=== PATIENT | male | born 2000 | race Caucasian/White ===

== ENCOUNTER 2021-03-20 17:01 | Emergency (ER) | payer MEDICAID ==
[~2021-03-20] VITALS: Ht 188 cm; Wt 77.1 kg
[2021-03-20 17:23] VITALS: BP 109/57
[2021-03-20] MEDS ORDERED: IBUP-2218 PO (21:53)
[2021-03-20] MEDS ORDERED: KETOROLAC 60 MG/2 ML VIAL IM ONE (21:55)
--- NOTE | 2021-03-20 22:02 | NUR ---
medicated patient per ermd orders. patient monitored. no adverse rx from medication
[2021-03-20 22:09] VITALS: BP 112/46
== END 2021-03-20 22:09 | disposition home or self-care (01) ==
LOC: MED 17:01
DX: M79.652 Pain in left thigh (principal); Z88.0 Allergy status to penicillin; Z79.899 Other long term (current) drug therapy
CPT/HCPCS: 73552; 73562; 96372; 99284; J1885

== ENCOUNTER 2021-07-12 10:15 | Emergency (ER) | payer MEDICAID ==
[~2021-07-12] VITALS: Ht 188 cm; Wt 81.6 kg
[~2021-07-12 10:15] MED LIST: IBUP-2218 PO
[2021-07-12 10:18] VITALS: BP 126/67
--- NOTE | 2021-07-12 10:24 | NUR ---
PT AMB TO BED 4.
--- NOTE | 2021-07-12 10:45 | NUR ---
21/M PRESENTS TO ED WITH C/O RIGHT FACIAL PAIN AND SWELLING. PATIENT DENIES RECENT INJURY OR TRAUMA, STATES CHEEK BEGAN SWELLING UP AT WORK YESTERDAY. DENIES TOOTH PAIN, STATES "I THINK I HAVE A CUT IN MY MOUTH." PATIENT DENIES SOB OR DIFFICULTY SWALLOWING, REPORTS 10/10 SHARP ACHING PAIN. STATES HE TOOK TYLENOL WITH NO RELIEF, DENIES FEVERS, CHILLS.
[2021-07-12] MEDS ORDERED: KETOROLAC 30 MG/ML VIAL IM ONE (11:05)
[2021-07-12] MEDS ORDERED: IBUP-2213 PO (11:12)
[2021-07-12] MEDS ORDERED: CLIN300C61 PO (11:12)
[2021-07-12] MEDS ORDERED: DEXAMETHASONE 10 MG/ML VIAL PO ONE (11:15)
[2021-07-12 11:44] VITALS: BP 126/67
--- NOTE | 2021-07-12 11:45 | NUR ---
Patient discharged with v/s stable. Written and verbal after care instructions given and explained. Patient alert, oriented and verbalized understanding of instructions. Ambulatory with steady gait. All questions addressed prior to discharge. ID band removed. Patient advised to follow up with PMD. Rx of CLINDAMYCIN AND IBUPROFEN given. Patient educated on indication of medication including possible reaction and side effects. Opportunity to ask questions provided and answered.
== END 2021-07-12 11:44 | disposition home or self-care (01) ==
LOC: MED 10:15
DX: K04.7 Periapical abscess without sinus (principal); Z79.1 Long term (current) use of non-steroidal anti-inflammatories (NSAID); Z79.2 Long term (current) use of antibiotics; Z88.0 Allergy status to penicillin
CPT/HCPCS: 96372; 99283; J1100; J1885

== ENCOUNTER 2021-10-10 08:52 | Emergency (ER) | payer MEDICAID ==
[~2021-10-10] VITALS: Ht 188 cm; Wt 81.6 kg
[~2021-10-10 08:52] MED LIST changes: +CLIN300C61 PO; +IBUP-2213 PO
[2021-10-10 09:07] VITALS: BP 131/113
--- NOTE | 2021-10-10 09:16 | NUR ---
Pt ambulated to bed 08.
--- NOTE | 2021-10-10 09:25 | NUR ---
Dr. Saldana evaluating patient at bedside.
--- NOTE | 2021-10-10 09:36 | NUR ---
Radiology at bedside.
--- NOTE | 2021-10-10 09:45 | NUR ---
Lab at bedside. Handed DINA and, Flu and Strep specimens to CPT Isabela.
[2021-10-10] MEDS: NACL 0.9% 1,000 ML IV ONE (09:56)
[2021-10-10] MEDS: ONDANSETRON 4 MG/2 ML VIAL IVP ONE (09:57)
[2021-10-10] MEDS: KETOROLAC 30 MG/ML VIAL IVP ONE (10:00)
[2021-10-10] MEDS: diphenhydrAMINE 50 MG/ML VIAL IVP ONE (10:01)
[2021-10-10 10:02] LABS: BASOPHILS % (AUTO) 0.3 % (0.0-2.0); HEMATOCRIT 42.9 % (36-52); HEMOGLOBIN 14.8 g/dL (12.0-18.0); LYMPHOCYTES % (AUTO) 9.1 % (20.5-51.1); MEAN CORPUSCULAR HEMOGLOBIN 31 pg (27-31); MEAN CORPUSCULAR HGB CONC 35 g/dL (33-37); MEAN CORPUSCULAR VOLUME 88.5 fL (80-94); MONOCYTES # (AUTO) 1.5 K/uL (0.8-1.0); MONOCYTES % (AUTO) 14.3 % (1.7-9.3); NEUTROPHILS # (AUTO) 8.2 K/uL (1.8-7.7); NEUTROPHILS % (AUTO) 76.3 % (42.2-75.2); PLATELET COUNT (AUTO) 312 K/uL (140-450); RED BLOOD CELL COUNT(AUTO) 4.85 MIL/uL (4.20-6.10); RED CELL DISTRIBUTION WIDTH 12.9 % (11.6-13.7); WHITE BLOOD COUNT (AUTO) 10.8 K/uL (4.8-10.8)
--- NOTE | 2021-10-10 10:23 | NUR ---
21 y/o male bib self with c/o subjective fever, chills, throat pain and generalized body pain x 2 days. Patient denies being around anyone who is sick. Patient denies cough or SOB. Patient has a 10/10 generalized body pain. Patient is also c/o diarrhea. Medical History: Denies ALLERGY: PENICILLIN
[2021-10-10 10:25] LABS: ALBUMIN 3.7 g/dL (3.4-5.0); ANION GAP 11.1 (8-16); CARBON DIOXIDE 28.4 mmol/L (21-32); CREATININE 1.2 mg/dL (0.6-1.3); POTASSIUM 3.5 mmol/L (3.5-5.1); TOTAL BILIRUBIN 0.7 mg/dL (0.0-1.0)
[2021-10-10] MEDS ORDERED: IBUP-2213 PO (11:07)
[2021-10-10] MEDS ORDERED: ROB PO (11:07)
--- NOTE | 2021-10-10 11:23 | NUR ---
Patient informed me to contact Shalini for ride back home.
[2021-10-10 11:45] VITALS: BP 104/57
--- NOTE | 2021-10-10 11:45 | NUR ---
Patient discharged with v/s stable. Written and verbal after care instructions given. Patient alert, oriented and verbalized understanding of instructions. Ambulatory with steady gait. All questions addressed prior to discharge. ID band removed. Patient advised to follow up with PMD. Rx of Ibuprofen and Robitussin given. Opportunity to ask questions provided and answered. WORK NOTE HANDED TO PATIENT.
--- NOTE | 2021-10-10 11:46 | NUR ---
Chart checked and completed. The patient's care was reviewed and supervised by Catie Marino RN.
[2021-10-11] MEDS ORDERED: CLIN300C73 PO (08:05)
[2021-10-11] MEDS ORDERED: NAPR-54 PO (08:05)
== END 2021-10-10 11:45 | disposition home or self-care (01) ==
LOC: MED 08:52
DX: B34.9 Viral infection, unspecified (principal); Z20.822 Contact with and (suspected) exposure to COVID-19; R50.9 Fever, unspecified; Z88.0 Allergy status to penicillin; Z79.899 Other long term (current) drug therapy
CPT/HCPCS: 36415; 71045; 80053; 82550; 82553; 83605; 83874; 83880; 84484; 85025; 87040; 87081; 87426; 87804; 93005; 96361; 96374; 96375; 99285; J1200; J1885; J2405; J7030; Q0092

== ENCOUNTER 2021-10-11 05:30 | Emergency (ER) | payer MEDICAID ==
[~2021-10-11] VITALS: Ht 188 cm; Wt 81.6 kg
[~2021-10-11 05:30] MED LIST changes: +ROB PO
[2021-10-11 05:39] VITALS: BP 116/98
--- NOTE | 2021-10-11 05:39 | NUR ---
TO BED AMBULATORY
--- NOTE | 2021-10-11 05:59 | NUR ---
21 Y/O MALE BIBS FROM HOME, C/O FEVER, WHOLE BODY PAIN, AND PAIN WHEN SWALLOWING SINCE YESTERDAY. PT STATES HE HAS TOOTH PAIN IN REAR LOWER TEETH WITH WHITE RESIDUE. PT CLAIMS HE HAS CHILLS AND DIARRHEA, DENIES N/V, COUGH, CP, OR SOB. A/OX4, UNLABORED BREATHING, AMBULATORY. NO PMH ALL: PCN
--- NOTE | 2021-10-11 06:06 | NUR ---
ER MD AT BEDSIDE EXAMINING PT
[2021-10-11] MEDS ORDERED: NACL 0.9% 1,000 ML IV ONE (06:15)
[2021-10-11] MEDS ORDERED: diphenhydrAMINE 50 MG/ML VIAL IVP ONE (06:20)
[2021-10-11] MEDS ORDERED: ONDANSETRON 4 MG/2 ML VIAL IVP ONE (06:20)
[2021-10-11] MEDS ORDERED: KETOROLAC 30 MG/ML VIAL IVP ONE (06:20)
[2021-10-11] MEDS ORDERED: CLINDAMYCIN 300 MG in DEXTROSE 5% 50 ML IV ONE (06:20)
--- NOTE | 2021-10-11 06:21 | NUR ---
XRAY AT BEDSIDE
--- NOTE | 2021-10-11 06:35 | NUR ---
PT TAKEN TO CT
--- NOTE | 2021-10-11 06:39 | NUR ---
CHEMISTRY PROFESSOR AT BEDSIDE
--- NOTE | 2021-10-11 06:40 | NUR ---
PT RETURNED FROM CT
[2021-10-11] MEDS ORDERED: CLINDAMYCIN 600 MG/4 ML VIAL ONE (06:43)
[2021-10-11 07:03] LABS: BASOPHILS % (AUTO) 0.1 % (0.0-2.0); EOSINOPHILS % (AUTO) 0.1 % (0.0-4.0); HEMATOCRIT 38.2 % (36-52); LYMPHOCYTES # (AUTO) 1.5 K/uL (2.0-11.5); LYMPHOCYTES % (AUTO) 13.1 % (20.5-51.1); MEAN CORPUSCULAR HEMOGLOBIN 30 pg (27-31); MEAN CORPUSCULAR HGB CONC 34 g/dL (33-37); MEAN CORPUSCULAR VOLUME 88.8 fL (80-94); MONOCYTES # (AUTO) 1.8 K/uL (0.8-1.0); MONOCYTES % (AUTO) 15.8 % (1.7-9.3); NEUTROPHILS # (AUTO) 7.9 K/uL (1.8-7.7); NEUTROPHILS % (AUTO) 70.9 % (42.2-75.2); PLATELET COUNT (AUTO) 275 K/uL (140-450); RED CELL DISTRIBUTION WIDTH 13.2 % (11.6-13.7); WHITE BLOOD COUNT (AUTO) 11.1 K/uL (4.8-10.8)
--- NOTE | 2021-10-11 07:10 | NUR ---
STREP SWABS COLLECTED AND WALKED TO LAB
--- NOTE | 2021-10-11 07:13 | NUR ---
Pt report given to CITLALI SERRATO. Transfer of care at this time.
--- NOTE | 2021-10-11 07:14 | NUR ---
Report received from Mich Frias. Transfer of care at this time.
--- NOTE | 2021-10-11 07:15 | NUR ---
Pt resting in bed with eyes closed, respirations even and unlabored. Responds to verbal and tactile stimuli. All needs met at this time.
--- NOTE | 2021-10-11 07:40 | NUR ---
pt ambulated to restroom with steady gait.
--- NOTE | 2021-10-11 07:50 | NUR ---
urine sample collected and walked to lab.
[2021-10-11 07:54] LABS: ALBUMIN 3.5 g/dL (3.4-5.0); ANION GAP 10.8 (8-16); ASPARTATE AMINOTRANSFERASE 27 U/L (15-37); CARBON DIOXIDE 28.5 mmol/L (21-32); CHLORIDE 104 mmol/L (98-107); CREATININE 1.1 mg/dL (0.6-1.3); GFR ARICAN-AMERICAN 107 mL/min (>90); GLUCOSE 109 mg/dL (74-106); POTASSIUM 3.3 mmol/L (3.5-5.1); SODIUM SERUM 140 mmol/L (136-145); TOTAL BILIRUBIN 0.4 mg/dL (0.0-1.0); UREA NITROGEN, BLOOD 9 mg/dL (7-18)
[2021-10-11] MEDS ORDERED: CLIN300C73 PO (08:05)
[2021-10-11] MEDS ORDERED: NAPR-54 PO (08:05)
[2021-10-11 08:14] LABS: APPEARANCE,URINE CLEAR (CLEAR); BILIRUBIN,URINE NEGATIVE (NEGATIVE); BLOOD, URINE NEGATIVE (NEGATIVE); COLOR,URINE YELLOW (YELLOW); LEUKOCYTE ESTERASE ,URINE NEGATIVE (NEGATIVE); NITRITE, URINE NEGATIVE (NEGATIVE); UGLUCOSE NEGATIVE (NEGATIVE)
[2021-10-11 08:20] VITALS: BP 111/57
--- NOTE | 2021-10-11 08:20 | NUR ---
Patient discharged with v/s stable. Written and verbal after care instructions about Dental abscess and tonsilitis given and explained. Patient alert, oriented and verbalized understanding of instructions. Ambulatory with steady gait. All questions addressed prior to discharge. ID band removed. Patient advised to follow up with PMD. Rx of Clindamycin, Naproxen given. Patient educated on indication of medication including possible reaction and side effects. Opportunity to ask questions provided and answered.
--- NOTE | 2021-10-12 10:53 | NUR ---
LATE ENTR-10/11/21 @ 0700 1LNS BOULS GIVEN-NADR AT THIS TIME
== END 2021-10-11 08:20 | disposition home or self-care (01) ==
LOC: MED 05:30
DX: K04.7 Periapical abscess without sinus (principal); Z20.822 Contact with and (suspected) exposure to COVID-19; J03.90 Acute tonsillitis, unspecified; Z88.0 Allergy status to penicillin; Z79.899 Other long term (current) drug therapy
CPT/HCPCS: 36415; 70486; 71045; 80053; 81003; 82550; 83605; 84484; 85025; 87040; 87081; 87426; 96365; 96375; 99285; J1200; J1885; J2405; J3490; J7030; Q0092

== ENCOUNTER 2023-08-09 17:16 | Emergency (ER) | payer MEDICAID ==
[~2023-08-09] VITALS: Ht 188 cm; Wt 81.6 kg
[~2023-08-09 17:16] MED LIST changes: +CLIN300C73 PO; +NAPR-337 PO
[2023-08-09 18:08] VITALS: BP 126/91; PULSE 112; RESP 16; TEMP 98.3; O2SAT 98
[2023-08-09] MEDS ORDERED: cefTRIAXone 1,000 MG VIAL ONE (18:38)
[2023-08-09] MEDS ORDERED: LIDOCAINE MPF 1% 5 ML ONE (18:39)
[2023-08-09] MEDS: cefTRIAXone 1,000 MG in LIDOCAINE MPF 1% 2.1 ML IM ONE (18:44)
[2023-08-09 18:49] VITALS: BP 126/91; PULSE 112; RESP 16; TEMP 98.3; O2SAT 98
[2023-08-09] MEDS ORDERED: DOXY-22 PO (18:51)
== END 2023-08-09 18:48 | disposition home or self-care (01) ==
LOC: MED 17:16
DX: R36.9 Urethral discharge, unspecified (principal); R30.0 Dysuria; Z79.1 Long term (current) use of non-steroidal anti-inflammatories (NSAID); Z79.2 Long term (current) use of antibiotics; Z79.899 Other long term (current) drug therapy; Z88.0 Allergy status to penicillin
CPT/HCPCS: 96372; 99283; J0696; J2001

== ENCOUNTER 2023-08-30 20:17 | Emergency (ER) | payer MEDICAID ==
[~2023-08-30] VITALS: Ht 188 cm; Wt 72.6 kg
[~2023-08-30 20:17] MED LIST changes: +DOXY-22 PO
[2023-08-30 20:24] VITALS: BP 114/73; PULSE 89; RESP 18; TEMP 98; O2SAT 100
[2023-08-30] MEDS ORDERED: TETRACAINE HCL/PF 0.5% OPTH 4 ML BTL ONE (22:12)
[2023-08-30] MEDS ORDERED: FLUORESCEIN OPTH STRIP 1 MG ONE (22:12)
[2023-08-30] MEDS: TETRACAINE HCL/PF 0.5% OPTH 4 ML BTL OP ONE (22:15)
[2023-08-30] MEDS: FLUORESCEIN OPTH STRIP 1 MG OP ONE (22:15)
[2023-08-30] MEDS ORDERED: IBUP-2213 PO (22:35)
[2023-08-30] MEDS ORDERED: ERYT5OIN51 OP (22:35)
[2023-08-30] MEDS: GENTAMICIN OP 0.3% 15 MG/5 ML BTL OP ONE (22:46)
[2023-08-30 23:06] VITALS: TEMP 98
[2023-08-30 23:34] VITALS: BP 127/60; PULSE 89; RESP 18; O2SAT 99
== END 2023-08-30 23:06 | disposition home or self-care (01) ==
LOC: MED 20:17
DX: S05.31XA Ocular laceration without prolapse or loss of intraocular tissue, right eye, initial encounter (principal); S05.01XA Injury of conjunctiva and corneal abrasion without foreign body, right eye, initial encounter; Z79.899 Other long term (current) drug therapy; Z88.0 Allergy status to penicillin; X58.XXXA Exposure to other specified factors, initial encounter; Y92.89 Other specified places as the place of occurrence of the external cause; Y93.89 Activity, other specified; Y99.8 Other external cause status
CPT/HCPCS: 70480; 99284